=== PATIENT | female | born 1980 | race African-American/Black ===

== ENCOUNTER 2019-09-24 08:00 | Inpatient (IN) | payer OTHER ==
[2019-09-24] MEDS: ELECTROLYTE-148 SOLN 1,000 ML IV SCH (08:30)
[2019-09-24 09:45] VITALS: BMI 32.5
--- NOTE | 2019-09-24 09:50 | PD.OB.PROG ---
Past Medical History - Primary Care Physician PCP:: Sheela García Documenting Provider Type: Attending - Admission Chief Complaint: IUGR @ 37 weeks with abnormal dopplers, breech presentation, fibroid uterus. R/O PIH History of Present Illness: 38 yo @ 37 weeks for evaluation IURG with abnormal dopplers r/o PIH Fibroid uterus Genetics for AMA - NIPS : low risk Last sono - 09/18/2019 iugr 8 % and abnormal dopplers History Source: Patient Limitations to Obtaining History: No Limitations - Nursing Documentation Hemorrhage Risk Assessment: Risk Level Low Risk High Level Risk Factors for None Hemorrhage Medium Level Risk Factors for None of the above Hemorrhage Low Level Risk Factors for No previous uterine incis,Santiago Pregnaancy, Hemorrhage Four (4) or less previous,No known bleeding,No history of PPH - Past Medical History DECORATOR MANNEQUIN: Denies/None Cardio/Vascular: Denies/None Pulmonary: Denies/None Gastrointestinal: Denies/None Hepatobiliary: Denies/None Renal/: Denies/None Reproductive: Denies/None ...: 8 ...Para: 2 ...Spon : 3 ...Induced : 2 ...Living Children: 2 ...EDC by Dates: 10/12/19 ...EDC by Sono: 10/12/19 Heme/Onc: Denies/None Infectious Disease: Denies/None Psych: Denies/None Musculoskeletal: Denies/None Rheumatology: Denies/None ENT: Denies/None Endocrine: Denies/None Dermatology: Denies/None - Past Surgical History Past Surgical History: Yes: None (May go home NPO after midnight 09/23/2019) - Smoking History Smoking history: Never smoked - Alcohol/Substance Use Hx Alcohol Use: No History of Substance Use: reports: None - Social History Usual Living Arrangement: With Spouse Do you think of yourself as: Straight/Heterosexual ADL: Independent History of Recent Travel: No Review of Systems - Review of Systems Constitutional: reports: No Symptoms Eyes: reports: No Symptoms HENT: reports: No Symptoms. denies: Ocular Prosthesis Neck: reports: No Symptoms Cardiovascular: reports: No Symptoms Respiratory: reports: No Symptoms Gastrointestinal: reports: No Symptoms Genitourinary: reports: No Symptoms Breasts: reports: No Symptoms Reported Musculoskeletal: reports: No Symptoms Integumentary: reports: No Symptoms Neurological: reports: No Symptoms Endocrine: reports: No Symptoms Hematology/Lymphatic: reports: No Symptoms Psychiatric: reports: No Symptoms Physical Exam - Obstetrical Constitutional: Yes: Well Nourished, No Distress Eyes: Yes: WNL HENT: Yes: WNL Neck: Yes: WNL Cardiovascular: Yes: WNL Lungs: Clear to auscultation Breast(s): Yes: WNL - Abdominal Exam/OB Presentation: Breech Contractions: No Intensity: Unaware Monitor Mode: External Heart Rate Location: [facility] Category: I Accelerations: Uniform Decelerations: None - Vaginal Exam/OB Vaginal Exam Deferred: No Amniotic Membrane Status: Intact Presentation: Bryant Breech Station: -2 - Physical Exam Musculoskeletal: Yes: WNL Extremities: Yes: WNL Edema: No Integumentary: Yes: WNL ...Motor Strength: WNL Psychiatric: Yes: WNL Problem List - Problems (1) 37 or more weeks gestation of Code(s): AQA1749 - (3) Breech presentation Code(s): O32.1XX0 - MATERNAL CARE FOR BREECH PRESENTATION, UNSP (4) PIH ( induced hypertension) Code(s): O13.9 - GESTATIONAL HTN W/O SIGNIFICANT PROTEINURIA, UNSP TRIMESTER Assessment/Plan Prolong NST PIH labs Scheduled for c/s with btl on 09/24/2019
[2019-09-24] MEDS ORDERED: CITRIC ACID/SODIUM CITRATE 30 ML UNIT-DOSE CUP PO ONE (09:57)
[2019-09-24] MEDS ORDERED: ceFAZolin SODIUM 1 GM VIAL ONE (10:01)
[2019-09-24] MEDS ORDERED: PHENYLEPHRINE HCL 10 MG/1 ML SINGLE DOSE VIAL ONE (10:01)
--- NOTE | 2019-09-24 10:01 | HP ---
Past Medical History - Primary Care Physician PCP:: Sheela García - Admission Chief Complaint: 38 yo EDC 10/12/2019 IUGR, Breech presentation, Fibroid uterus, multiparity, R/O PIH admitted for Primary c/s with BTL History of Present Illness: 38 yo EDC 10/12/2019 AMA, IUGR, Breech presentation, Fibroid uterus, multiparity, R/O PIH admitted for Primary c/s with BTL History Source: Patient Limitations to Obtaining History: No Limitations - Past Medical History Reproductive: Yes: Other (recurrent loss AMA - genetic consult : NIPS low risk fibroid uterus) ...: 8 ...Para: 2 ...Term: 2 ...: 0 ...Spon : 3 ...Induced : 2 ...Living Children: 2 ...Multiple Gestation: 0 ...EDC by Dates: 10/12/19 ...EDC by Sono: 10/12/19 - Past Surgical History Past Surgical History: Yes: None (May go home NPO after midnight 09/23/2019) Hx Myomectomy: No Hx Transabdominal Cerclage: No - Smoking History Smoking history: Never smoked Have you smoked in the past 12 months: No - Alcohol/Substance Use Hx Alcohol Use: No History of Substance Use: reports: None - Social History Usual Living Arrangement: Yes: With Spouse Do you think of yourself as: Straight/Heterosexual ADL: Independent 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 History of Recent Travel: No Home Medications - Allergies Allergies/Adverse Reactions: Allergies Allergy/AdvReac Type Severity Reaction Status Date / Time No Known Allergies Allergy Verified 09/24/19 09:16 - Home Medications Home Medications: Ambulatory Orders Ferrous Sulfate [Iron] 1 tab PO DAILY 09/24/19 Vitamins (Sjr) - 1 tab PO DAILY 09/24/19 Family Medical History Other Family History: mother - lymphoma Review of Systems - Review of Systems Constitutional: reports: No Symptoms Eyes: reports: No Symptoms HENT: reports: No Symptoms Neck: reports: No Symptoms Cardiovascular: reports: No Symptoms Respiratory: reports: No Symptoms Gastrointestinal: reports: No Symptoms Genitourinary: reports: No Symptoms Breasts: reports: No Symptoms Reported Musculoskeletal: reports: No Symptoms Integumentary: reports: No Symptoms Neurological: reports: No Symptoms Endocrine: reports: No Symptoms Hematology/Lymphatic: reports: No Symptoms Psychiatric: reports: No Symptoms Physical Exam - Maternity Constitutional: Yes: Well Nourished, No Distress Eyes: Yes: WNL HENT: Yes: WNL Neck: Yes: WNL Cardiovascular: Yes: WNL Lungs: Clear to auscultation Breast(s): Yes: WNL - Abdominal Exam/OB Fundal Height: 38 Number of Fetuses: Single Presentation: Breech Contractions: No Regularity: Irritability Intensity: Unaware Monitor Mode: External Heart Rate Location: [facility] Category: I Accelerations: Uniform Decelerations: None - Vaginal Exam/OB Vaginal Bleeding: No Dilatation (cm): closed Amniotic Membrane Status: Intact Presentation: Full/Complete Breech Station: -1 - Physical Exam Musculoskeletal: Yes: WNL Extremities: Yes: WNL Edema: No Integumentary: Yes: WNL Deep Tendon Reflex Grade: Normal +2 Psychiatric: Yes: WNL Hemorrhage Risk Assessment - Risk Factors Medium Risk Factors: Yes: Large myomas Risk Score: 2 Risk Level: High Risk Problem List - Problems (1) 37 or more weeks gestation of Code(s): [id number] - (2) IUGR (intrauterine growth restriction) Problems reviewed: Yes (3) Breech presentation Code(s): O32.1XX0 - MATERNAL CARE FOR BREECH PRESENTATION, UNSP (4) PIH ( induced hypertension) Problems reviewed: No Code(s): O13.9 - GESTATIONAL HTN W/O SIGNIFICANT PROTEINURIA, UNSP TRIMESTER (5) Fibroid uterus Code(s): D25.9 - LEIOMYOMA OF UTERUS, UNSPECIFIED (6) Multiparity Code(s): Z64.1 - PROBLEMS RELATED TO MULTIPARITY Assessment/Plan Admit to [facility] and delivery Primary c/s with BTL
[2019-09-24] MEDS ORDERED: morphine SULFATE/PF 0.5 MG/ML (2cc Syringe - QUVA) ONE (10:02)
[2019-09-24] MEDS ORDERED: ePHEDrine SULFATE 50 MG/1 ML AMPULE ONE (10:02)
[2019-09-24] MEDS ORDERED: OXYTOCIN 20 UNITS in 0.9% NS 20 UNIT/1,000 ML INFUS.BAG IV ONE ×2 (10:17→13:57)
[2019-09-24] MEDS ORDERED: ONDANSETRON 4 MG/2 ML VIAL IVPUSH PRN (10:59)
[2019-09-24] MEDS ORDERED: KETOROLAC TROMETHAMINE 30 MG/1 ML VIAL ONE (11:04)
[2019-09-24] MEDS: OXYTOCIN 20 UNITS in 0.9% NS 20 UNIT/1,000 ML INFUS.BAG IV SCH (11:35)
[2019-09-24] MEDS ORDERED: ACETAMINOPHEN 325 MG TABLET (FP) PO PRN (11:47)
[2019-09-24] MEDS ORDERED: oxyCODONE HCL 5 MG TABLET PO PRN (11:47)
--- NOTE | 2019-09-24 12:00 | OP ---
Operative Note - Note: Operative Date: 09/24/19 Pre-Operative Diagnosis: 38 yo @ 37 weeks, Breech presentation, IUGR, Multiparity, Fibroid uterus Operation: LTCS and BTL via Pfannenstiel incision Findings: Uterus - fundal fibroid around 8 cm located on the left cornua Baby boy born 9/9 CAN x 1 Cord gases and blood collected Placenta and membranes complete - velamentous insertion of the cord Post-Operative Diagnosis: Same as Pre-op (and velamentous insertion of the cord) Surgeon: Sheela García Ash Handler: Michelle Doherty Anesthesiologist/RETORT FURNACE HELPER: Karin Teresa Anesthesia: Spinal Specimens Removed: Placenta and membranes Estimated Blood Loss (mls): 800 Fluid Volume Replaced (mls): 2,000 Operative Report Dictated: No
[2019-09-24 12:18] LABS: CORD HCO3 22.2 mmHg (20-29); CORD PCO2 44.4 mmHg (30-78); CORD pH 7.317 (7.14-7.44)
[2019-09-24] MEDS ORDERED: IBUPROFEN 800 MG/8 ML IJ IVPB PRN (13:36)
[2019-09-24] MEDS: CEFAZOLIN 1 GM/D5W 1 GM/50 ML BAG IVPB SCH (17:57)
[2019-09-25] MEDS: CEFAZOLIN 1 GM/D5W 1 GM/50 ML BAG IVPB SCH ×2 (02:06→09:47)
[2019-09-25] MEDS ORDERED: IBUPROFEN 600 MG TABLET (FP) PO PRN (06:00)
[2019-09-25] MEDS: SIMETHICONE 80 MG TAB.CHEW (FP) PO SCH ×5 (06:08→21:38)
[2019-09-25 08:08] LABS: BASO % 0.3 % (0-2.0); HEMATOCRIT 35.1 % (32.4-45.2); LYMPH % 15.4 % (8-40); MCH 30.7 pg (25.7-33.7); MCHC 34.2 g/dl (32.0-36.0); MEAN CELL VOLUME 89.8 fl (80-96); MEAN PLT VOLUME 8.2 fl (7.5-11.1); MONO % 8.1 % (3.8-10.2); NEUT % 74.2 % (42.8-82.8); PLATELET COUNT 158 K/MM3 (134-434); RDW 14.8 % (11.6-15.6); WHITE BLOOD COUNT 8.1 K/mm3 (4.0-10.0)
--- NOTE | 2019-09-25 09:22 | PN ---
Post Progress Note - Subjective Subjective: Pt c/o mild incisional pain, Happy Post Day: 1 Type of Delivery: Primary C/S Vital Signs: Vital Signs Temperature 98.1 F 09/25/19 05:57 Pulse Rate 85 09/25/19 05:57 Respiratory Rate 20 09/25/19 05:58 Blood Pressure 136/78 09/25/19 05:57 O2 Sat by Pulse Oximetry (%) 98 09/25/19 05:57 Breast Exam: Yes: Soft Uterus: Yes: Fundus Firm, Fundus above umbilicus Incision: Yes: Dressing dry and intact Abdomen/GI: Yes: Abdomen soft, Passing flatus, Tolerating PO Lochia: Yes: Rubra Lochia, amount: Small Extremities: Yes: Calves non-tender - Labs Labs: CBC WBC 8.1 K/mm3 (4.0-10.0) 09/25/19 07:38 RBC 3.90 M/mm3 (3.60-5.2) 09/25/19 07:38 Hgb 12.0 GM/dL (10.7-15.3) 09/25/19 07:38 Hct 35.1 % (32.4-45.2) 09/25/19 07:38 MCV 89.8 fl (80-96) 09/25/19 07:38 MCH 30.7 pg (25.7-33.7) 09/25/19 07:38 MCHC 34.2 g/dl (32.0-36.0) 09/25/19 07:38 RDW 14.8 % (11.6-15.6) 09/25/19 07:38 Plt Count 158 K/MM3 (134-434) 09/25/19 07:38 MPV 8.2 fl (7.5-11.1) 09/25/19 07:38 Absolute Neuts (auto) 6.0 K/mm3 (1.5-8.0) 09/25/19 07:38 Neutrophils % 74.2 % (42.8-82.8) 09/25/19 07:38 Lymphocytes % 15.4 % (8-40) D 09/25/19 07:38 Monocytes % 8.1 % (3.8-10.2) 09/25/19 07:38 Eosinophils % 2.0 % (0-4.5) 09/25/19 07:38 Basophils % 0.3 % (0-2.0) 09/25/19 07:38 Nucleated RBC % 0 % (0-0) 09/25/19 07:38 Problem List - Problems (1) 37 or more weeks gestation of Code(s): [id number] - (3) Breech presentation Code(s): O32.1XX0 - MATERNAL CARE FOR BREECH PRESENTATION, UNSP (4) PIH ( induced hypertension) Code(s): O13.9 - GESTATIONAL HTN W/O SIGNIFICANT PROTEINURIA, UNSP TRIMESTER Assessment/Plan Ambulate Regular diet Encourage
[2019-09-25] MEDS: ACETAMINOPHEN 325 MG TABLET (FP) PO PRN ×2 (09:45→18:30)
[2019-09-25] MEDS: IBUPROFEN 600 MG TABLET (FP) PO PRN ×2 (09:46→18:30)
[2019-09-25] MEDS: ENOXAPARIN NA (PORCINE) 40 MG/0.4 ML DISP.SYRIN SQ SCH (09:47)
--- NOTE | 2019-09-25 10:36 | PN ---
Progress Note (short form) - Note Progress Note: Anesthesia POD#1 S/P under spinal anesthesia with Duramorph VSS,no N/V. pain is mild. legs have full strength. No complications to anesthesia seen. Angelina Veliz MD.
[2019-09-25] MEDS ORDERED: BISACODYL 10 MG SUPP.RECT RC ONE (18:00)
[2019-09-25] MEDS: ELECTROLYTE-148 SOLN 1,000 ML IV SCH (19:49)
[2019-09-25] MEDS: OXYTOCIN 20 UNITS in 0.9% NS 20 UNIT/1,000 ML INFUS.BAG IV SCH (19:49)
[2019-09-26] MEDS: SIMETHICONE 80 MG TAB.CHEW (FP) PO SCH ×3 (01:58→09:56)
[2019-09-26] MEDS: ACETAMINOPHEN 325 MG TABLET (FP) PO PRN (08:43)
[2019-09-26] MEDS: IBUPROFEN 600 MG TABLET (FP) PO PRN (08:44)
[2019-09-26] MEDS ORDERED: BISACODYL 10 MG SUPP.RECT PR ONE (08:57)
--- NOTE | 2019-09-26 09:05 | DS ---
Physical Exam-MIG TIG WELDER Vital Signs: Vital Signs Temperature 98 F 09/25/19 21:16 Pulse Rate 85 09/25/19 21:16 Respiratory Rate 18 09/25/19 21:16 Blood Pressure 155/90 09/25/19 21:16 O2 Sat by Pulse Oximetry (%) 97 09/25/19 21:16 Constitutional: Yes: Well Nourished, No Distress, Calm Eyes: Yes: WNL, Conjunctiva Clear, EOM Intact HENT: Yes: WNL, Atraumatic, Normocephalic Neck: Yes: WNL, Supple, Trachea Midline Cardiovascular: Yes: WNL, Regular Rate and Rhythm Respiratory: Yes: WNL, Regular, CTA Bilaterally Gastrointestinal: Yes: WNL ...Rectal Exam: Yes: WNL Renal/: Yes: WNL Breast(s): Yes: WNL Musculoskeletal: Yes: WNL Extremities: Yes: WNL Integumentary: Yes: WNL Neurological: Yes: WNL, Alert, Oriented ...Motor Strength: WNL Psychiatric: Yes: WNL, Alert, Oriented Labs: CBC, BMP 09/25/19 07:38 Delivery - Delivery Type of Anesthesia: Spinal Episiotomy/Laceration: None EBL (cc): 800 Delivery, Single - Stages of Labor Date of Delivery: 09/24/19 Time of Delivery: 10:46 Time Placenta Delivered: 10:48 - Condition of Concrete Layer/Mission Support Specialist Present: Yes Name: Onur Schrader Gender: Male Weight: 2.325 kg Total Hours ROM (Hrs/Mins): 0Hrs/3Mins - 1 Minute Total Score: 9 5 Minutes Total Score: 9 - [place] Feeding Plan Initial Plan: Exclusive throughout hospitalization Discharge Summary Problems reviewed: Yes Reason For Visit: & BTL Current Active Problems 37 or more weeks gestation of (Acute) Breech presentation (Acute) Fibroid uterus (Acute) IUGR (intrauterine growth restriction) (Acute) Multiparity (Acute) PIH ( induced hypertension) (Acute) Condition: Good - Instructions Diet, Activity, Other Instructions: regular diet ambulate Disposition: HOME - Home Medications Comprehensive Discharge Medication List: Ambulatory Orders Ferrous Sulfate [Iron] 1 tab PO DAILY 09/24/19 Vitamins (Sjr) - 1 tab PO DAILY 09/24/19 Docusate Sodium [Colace] 100 mg PO BID PRN 20 Days capsule 09/25/19 Ibuprofen [Motrin -] 600 mg PO QID PRN #28 tablet 09/25/19
[2019-09-26] MEDS: ENOXAPARIN NA (PORCINE) 40 MG/0.4 ML DISP.SYRIN SQ SCH (09:31)
[2019-09-26 12:09] VITALS: BP 139/87; PULSE 88; TEMP 98.7
--- NOTE | 2019-09-28 17:17 | PATH ---
Surgical Pathology Report Patient Name: KEVYN AMES [facility]. Rec. #: [id number] /Age/Gender: 1980 (Age: 38) / F Account: [id number] Location: [facility] OBS/DIRECTOR OF APPLICATION DEVELOPMENT Taken: 09/24/2019 Received: 09/25/2019 Reported: 09/28/2019 Physicians: Sheela García M.D. Specimen(s) Received A: PLACENTA B: PORTION OF LEFT FALLOPIAN TUBE C: PORTION OF RIGHT FALLOPIAN TUBE Clinical History , 37.1 weeks IUGR, breech presentation Final Diagnosis A. PLACENTA, SECTION: 308 G THIRD TRIMESTER PLACENTA WITH TRIVASCULAR UMBILICAL CORD AND UNREMARKABLE PLACENTAL MEMBRANES. B. FALLOPIAN TUBE, LEFT, PARTIAL EXCISION: FULL LUMINAL PORTION OF UNREMARKABLE FALLOPIAN TUBE. C. FALLOPIAN TUBE, RIGHT, PARTIAL EXCISION: FULL LUMINAL PORTION OF UNREMARKABLE FALLOPIAN TUBE. Electronically Signed Nolvia Whitney M.D. Gross Description A. The specimen is received fresh labeled placenta and is a 308 gram, 17.0 x 11.0 x 2.4 cm. placenta with attached membranes and umbilical cord. The attached membranes are nicolas, translucent with focal opacities and insert marginally. The umbilical cord measures 21 cm. in length and averages 1 cm. in diameter. The cord inserts at the margin. No true knots or strictures are identified. Cut surface of the umbilical cord reveals 3 vessels. The surface is pierre-blue with minimal fibrin deposition and appropriate caliber vessels. The maternal surface is red-brown with focal defects. Sectioning reveals red-brown, spongy parenchyma. No lesions are identified. Security Professional sections are submitted in three cassettes as follows: 1- membrane rolls and umbilical cord; 2-3- full thickness sections of placenta. B. Received in formalin labeled "portion of left fallopian tube," is a 1.3 cm in length portion of fallopian tube. No fimbria are present. The outer surface is nicolas-pink and smooth. Sectioning reveals an unremarkable lumen. Security Professional sections are submitted in one cassette. C. Received in formalin labeled "portion of right fallopian tube," is a 1.8 cm in length portion of fallopian tube. No fimbria are present. The outer surface is nicolas-pink and smooth. Sectioning reveals an unremarkable lumen. Security Professional sections are submitted in one cassette. 09/25/2019 saudi09/25/2019
--- NOTE | 2019-10-08 12:25 | OP ---
DATE OF OPERATION: 09/24/2019 PREOPERATIVE DIAGNOSIS: A 38-year-old 8, para 2-0-5-2 at 37 weeks, breech presentation, intrauterine growth restriction, multiparity, fibroid uterus. PROCEDURE: Lower transverse section with bilateral tubal ligation via Pfannenstiel incision. FINDINGS: Uterus: Fundal fibroid uterus around 8 cm located in the left cornu. Baby boy born, 9, 9; cord around the neck x1. Cord gases and blood collected. Placenta and membrane complete, velamentous insertion of the cord sent to Pathology. POSTOPERATIVE DIAGNOSIS: A 38-year-old 8, para 2-0-5-2 at 37 weeks, breech presentation, intrauterine growth restriction, multiparity, fibroid uterus. SURGEON: Kaylyn Xiong MD INDUSTRIAL GAS SERVICER HELPER: Michelle Doherty MD ANESTHESIA: Karin Teresa MD, spinal. SPECIMEN: Placenta and membranes. ESTIMATED BLOOD LOSS: 800 mL FLUID REPLACED: Lactated Ringer's 2000 mL. URINE OUTPUT AT THE END OF THE PROCEDURE: Clear urine 200 mL. PROCEDURE: The patient was taken to the operating room where spinal anesthesia was found to be adequate. She was then prepped and draped in the usual sterile fashion in the dorsal supine position with a leftward tilt. A Pfannenstiel skin incision was made with a scalpel and carried through to the underlying layers of fascia with the Bovie. The fascia was incised in the midline and the incision extended laterally with Marcelo scissors. The superior and inferior aspects of fascial incision were grasped with Alex clamps, elevated and the underlying rectus muscles dissected off bluntly. The rectus muscles were then in the midline. The peritoneum was identified, tented up and entered sharply with Metzenbaum scissors. This peritoneal incision was extended superiorly and inferiorly with good visualization of the bladder. The bladder blade was inserted and the vesicouterine peritoneum identified, grasped with pickups and entered sharply with Metzenbaum scissors. This incision was extended laterally and the bladder flap created digitally. The bladder blade was then reinserted. The lower uterine segment incised in transverse fashion with a scalpel. The uterine incision was then extended laterally with bandage scissors. The bladder blade was removed and the infant's delivered as breech. The nose and mouth were suctioned and the cord clamped and cut. The was handed off to the waiting sales representative printing supplies. Cord gases were sent. Placenta was then removed manually. The uterus exteriorized and cleared of all clots and debris. Uterine incision was repaired with 1-0 chromic in a running locked fashion. Second layer of the same suture was used to obtain excellent hemostasis. The bladder flap was repaired with 2-0 chromic in a running stitch and the attention was turned to the tubes. The tubes were ligated, cut and burned bilaterally in the same fashion. No bleeding noted. The uterus returned to the abdomen. The gutters were clear of all clots and debris. Peritoneum closed with 2-0 chromic. The fascia was reapproximated with 0 Vicryl in a running fashion. The skin was closed with 4-0 Vicryl in subcuticular fashion. The patient tolerated the procedure well. Sponge, lap, needle counts were correct x2. The patient was taken to the recovery room in stable condition. KAYLYN XIONG MD RP/[id number]
== END 2019-09-26 14:15 | disposition home or self-care (01) | DRG 788 ==
LOC: JLDR 08:00 → J3W 14:29
PROVIDERS: ADMIT Obstetrics & Gynecology; ATTEND Obstetrics & Gynecology
PROC: 10D00Z1 Extraction of Products of Conception, Low, Open Approach (ICD-10-PCS; principal; 2019-09-24)
DX: O32.1XX0 Maternal care for breech presentation, not applicable or unspecified (principal); O13.4 Gestational [pregnancy-induced] hypertension without significant proteinuria, complicating childbirth; O36.5930 Maternal care for other known or suspected poor fetal growth, third trimester, not applicable or unspecified; O34.13 Maternal care for benign tumor of corpus uteri, third trimester; O69.81X0 Labor and delivery complicated by cord around neck, without compression, not applicable or unspecified; Z3A.37 37 weeks gestation of pregnancy; Z37.0 Single live birth
CPT/HCPCS: 36415; 36600; 71045-TC-FY; 82803; 85025; 88302-TC; 88307-TC; 94010